=== PATIENT | female | born 1990 | race Caucasian/White ===

== ENCOUNTER 2021-10-13 13:19 | Emergency (ER) | payer BC, SELFPAY ==
--- NOTE | ~2021-10-13 | CT_ITS ---
EXAMINATION: CT facial bones wo con DATE: 10/13/2021 15:18 INDICATION: Face injury. TECHNIQUE: Computed tomography (CT) of the facial bones and maxillofacial region was performed withou t intravenous contrast. Automated exposure control and iterative reconstruction technique were employ ed. The dose-length product was 605.33 mGy-cm. COMPARISON: None. FINDINGS: There is rightward deviation of the nasal septum. No fracture. There is mild mucosal thicke jerry in the ethmoid sinuses. IMPRESSION: 1. No fracture. Reviewed, dictated and finalized at location A. IMPRESSION: 1. No fracture.
--- NOTE | ~2021-10-13 | XR_ITS ---
EXAMINATION: XR chest 2V DATE: 10/13/2021 15:22 INDICATION: Dizziness and shortness of breath TECHNIQUE: PA and lateral views of the chest are obtained. COMPARISON: None available FINDINGS: The lungs are free of acute opacities. There is no pleural effusion or pneumothorax. The ca rdiomediastinal silhouette is normal. The visualized bones and soft tissues are unremarkable. IMPRESSION: 1. No acute cardiopulmonary abnormality. Reviewed, dictated and finalized at location A.
--- NOTE | ~2021-10-13 | CT_ITS ---
EXAMINATION: CT brain wo con DATE: 10/13/2021 15:18 INDICATION: Head injury. TECHNIQUE: Computed tomography (CT) of the head was performed without intravenous contrast. The mA wa s adjusted according to patient size. Iterative reconstruction technique was employed. The dose-lengt h product was 605.33 mGy-cm. COMPARISON: None FINDINGS: There is no intracranial hemorrhage, acute infarction, or abnormal intracranial mass lesion . There is a 2.2 x 1.1 cm arachnoid cyst overlying right frontal lobe. The ventricles are normal in s ize. There is mild mucosal thickening in the paranasal sinuses. There is a small right mastoid effusi on. IMPRESSION: 1. No acute intracranial pathology. Reviewed, dictated and finalized at location A.
[2021-10-13 13:30] VITALS: BP 111/65; PULSE 76; RESP 16; TEMP 36.6; O2SAT 99
--- NOTE | 2021-10-13 14:39 | ECG_ITS ---
Measurements Intervals [place] Rate: 64 P: 7 NE: 117 QRS: 58 QRSD: 81 T: 41 QT: 354 QTc: 367 Interpretive Statements SINUS RHYTHM WITH SINUS ARRHYTHMIA WITH SHORT NE INTERVAL BASELINE ARTIFACT BORDERLINE ECG NO PREVIOUS ECG AVAILABLE FOR COMPARISON Electronically Signed On 10-13-2021 14:59:33 CDT by Pee Mayfield M.D.
[2021-10-13 15:09] LABS: Basophils Absolute Auto 0.05 K/mm3 (0.00-0.10); Basophils Percent Auto 0.7 % (0.0-1.0); Eosinophils Absolute Auto 0.09 K/mm3 (0.02-0.50); Eosinophils Percent Auto 1.3 % (1.0-6.0); Hematocrit 35.8 % (35.0-49.0); Hemoglobin 11.8 g/dL (12.0-15.0); Immature Granulocyte Absolute 0.01 K/mm3 (0.00-0.00); Immature Granulocyte Percent A 0.1 % (0.0-0.0); Lymphocytes Absolute Auto 2.63 K/mm3 (1.10-4.50); Lymphocytes Percent Auto 39.1 % (18.0-42.0); Mean Corpuscular Hemoglobin 29.9 pg (27.0-31.0); Mean Corpuscular Volume 90.9 fL (78.0-102.0); Mean Platelet Volume 10.1 fl (9.2-11.8); Monocytes Absolute Auto 0.45 K/mm3 (0.10-0.90); Monocytes Percent Auto 6.7 % (2.0-11.0); Neutrophils Absolute Auto 3.5 K/mm3 (1.7-7.2); Neutrophils Percent Auto 52.1 % (50.0-70.0); Platelet Count Result 253 K/mm3 (150-420); Red Blood Count 3.94 M/mm3 (4.20-5.40); Red Cell Distribution Width 12.1 % (11.6-14.4); White Blood Count 6.7 K/mm3 (4.8-10.8)
[2021-10-13] MEDS: ACETAMINOPHEN 325 MG TABLET 650 MG PO (15:15)
[2021-10-13 15:17] LABS: Add Urine Microscopic? YES; Bilirubin Urine Negative (Negative); Blood Urine Negative (Negative); Color Urine Light Yellow (Yellow); Glucose Urine UA Negative (Negative); Ketones Urine Negative (Negative); Leukocyte Esterase Ur Trace (Negative); Nitrate Urine Negative (Negative); Protein Urine Negative (Negative); Urobilinogen Urine 0.2 mg/dL (0.2-1.0)
[2021-10-13 15:23] LABS: Amorphous Sediment Urine Moderate; Appearance Urine Cloudy (Clear); RBC Urine None seen /hpf (0-2); Squamous Epithelial Cell Urine Few /hpf (Few)
[2021-10-13 15:24] LABS: Bacteria Urine Trace /hpf
[2021-10-13 15:27] LABS: SPREG INTERNAL CONTROL Positive; Serum Qual hCG Negative
[2021-10-13 15:31] LABS: Alanine Aminotransferase 18 U/L (14-59); Albumin Level 3.6 g/dL (3.4-5.0); Alkaline Phosphatase 77 U/L (46-116); Amphetamine Screen Urine Negative (Negative); Anion Gap 3 mmol/L (8-16); Aspartate Amino Transferase 12 U/L (15-37); Barbiturate Screen Urine Negative (Negative); Benzodiazepines Screen Urine Negative (Negative); Bilirubin,Total 0.8 mg/dL (0.00-1.00); Blood Urea Nitrogen 11 mg/dL (7-18); Calcium 8.7 mg/dL (8.5-10.1); Cannabinoid Screen Urine Negative (Negative); Carbon Dioxide 30 mmol/L (21-32); Chloride 106 mmol/L (98-108); Cocaine Screen Urine Negative (Negative); Estimated CRCL calculation 87 ml/min; Estimated Glomerular Filt Rate > 60; Ethanol 3 mg/dL (0-6); Glucose 97 mg/dL (70-99); Methadone Screen Urine Negative (Negative); Opiate Screen Urine Negative (Negative); Osmolality Calculated 287 mOsm/kg (285-295); Phencyclidine Screen Urine Negative (Negative); Potassium 3.7 mmol/L (3.5-5.1); Sodium 139 mmol/L (136-145); Total Protein 6.8 g/dL (6.4-8.2); Troponin I 4.3 ng/L (0.00-60.4)
--- NOTE | 2021-10-13 15:35 | PC.NURSE ---
pt declines iv and ivf at this time. she is currently drinking soda without difficulty. mother at bedside.
--- NOTE | 2021-10-13 16:21 | ED.EPISTAXIS ---
HPI - Epistaxis General Chief complaint: Epistaxis Stated complaint: NOSE PAIN/BLEEDING Time Seen by Provider: 10/13/21 13:23 Source: patient and RN notes reviewed Mode of arrival: ambulatory Limitations: no limitations History of Present Illness HPI Narrative: hit on head with resultant nosebleed, now resolved. complaint: epistaxis Location: left nostril Onset (ago): hour(s) Duration: now resolved Treatment prior to arrival: other (no acute epistaxis in the ED.) Related Data Home Medications Medication Instructions Recorded Confirmed fluoxetine 40 mg capsule 1 cap PO DAILY 10/13/21 10/13/21 Allergies Allergy/AdvReac Type Severity Reaction Status Date / Time No Known Allergies Allergy Verified 10/13/21 13:48 Review of Systems Review of Systems: All systems reviewed & are unremarkable except as noted in HPI and below Constitutional: Constitutional: Reports no additional constitutional complaints Eyes: Eyes: Reports no additional eye complaints ENT: Reports system reviewed and no additional complaints, except as documented Comments: head injury with epistaxis, now resolved. Cardiovascular: Cardiovascular: Reports no additional cardiovascular complaints Respiratory: Respiratory: Reports no additional respiratory complaints Gastrointestinal: Gastrointestinal: Reports no additional gastrointestinal complaints Genitourinary: Genitourinary: Reports no additional female genitourinary complaints Musculoskeletal: Musculoskeletal: Reports no additional musculoskeletal complaints Integumentary/Breasts: Skin/Breast: Reports system reviewed and no additional complaints, except as docu Neurologic: Reports system reviewed and no additional complaints, except as documented Psychiatric: Psychiatric: Reports no additional psychiatric complaints Endocrine: Endocrine: Reports no additional endocrine complaints Hematologic/Lymphatic: Hematologic/Lymphatic: Reports no additional hematologic/lymphatic complaints Allergic/Immunologic: Allergic/Immunologic: Reports no additional allergic/immunologic complaints PMFSH Past Medical History Medical History Epistaxis due to trauma Exam Const: General: healthy appearing and no acute distress Nutritional Appearance: well nourished Orientation/consciousness: patient oriented x3 Limitations: no limitations HENMT: Head: normal to inspection Ears: external ears normal, TM's normal bilaterally and EAC's normal General nose exam: Normal external nose present and Normal nares present (no acute epistaxis) Face and sinus: normal facial exam and sinuses nontender Mouth: Yes Normal oral and palatal mucosa present and Yes moist mucous membranes Teeth and gingiva: dentition normal Throat: posterior oropharynx normal Eyes: Conjunctivae: conjunctivae normal Pupils: Equal, round and reactive pupils present EOM: EOMs intact bilaterally Neck: Neck: normal visual inspection, no lymphadenopathy and no meningeal signs Chest: Chest palpation & inspection: normal inspection of the chest Resp: Effort & Inspection: normal respiratory effort Auscultation: clear to auscultation bilaterally Cardio: Rate: regular rate Rhythm: regular rhythm GI: GI Palp: Yes Soft to palpation and No Tenderness to palpation present (GI) Auscultation: normal bowel sounds : General: Yes bladder normal to palpation and Yes no CVA tenderness Bimanual exam- vagina & uterus: bladder normal to palpation Back/Spine/Pelvis: Back: no CVA tenderness Skin: General skin exam: normal color Rashes: no rashes Wounds: no wounds Neuro: General: patient oriented x3, moves all extremities, no meningeal signs, no focal motor deficits and CN's II-XI intact bilaterally Cranial nerves: Yes Equal, round and reactive pupils present and Yes Nystagmus not present Speech: normal speech Gait exam (Neuro): Normal gait present Extrem: General: normal to inspectio
--- NOTE | 2021-10-13 16:22 | PC.NURSE ---
1415 PT IS SITTING ON STRETCHER IN EXAM ROOM TALKING WITH MOTHER. NAD NOTED AT THIS TIME. SODA AND ICE PROVIDED REQUESTED. PT IS AWAITING ERP AT THIS TIME. WILL CONTINUE TO MONITOR.
--- NOTE | 2021-10-13 16:23 | PC.NURSE ---
PT IS AWAITING ERP DECISION AT THIS TIME. PT IS TALKING WITH MOTHER, NAD NOTED. WILL CONTINUE TO MONITOR.
--- NOTE | 2021-10-13 16:25 | PC.NURSE ---
MEDICATIONS GIVEN WITHOUT SCANNING DUE TO COMPUTER BEING DOWN.
[2021-10-13 17:00] VITALS: BP 110/60; PULSE 62; RESP 16; O2SAT 98
== END 2021-10-13 17:00 | disposition home or self-care (01) ==
PROVIDERS: Emergency Provider Emergency Medicine; PCP Family Medicine
DX: S00.33XA Contusion of nose, initial encounter (principal); S09.90XA Unspecified injury of head, initial encounter; N39.0 Urinary tract infection, site not specified; W22.8XXA Striking against or struck by other objects, initial encounter
CPT/HCPCS: 36415; 70450; 70486; 71046; 80053; 80307; 81001; 84484; 84703; 85025; 93005; 99284; A9270

== ENCOUNTER 2024-01-02 18:45 | Emergency (ER) | payer BC, SELFPAY ==
[2024-01-02 18:51] VITALS: BP 134/91; PULSE 84; RESP 18; TEMP 36.3; O2SAT 97
[2024-01-02 18:52] VITALS: BP 134/91; PULSE 84; RESP 18; TEMP 36.3; O2SAT 97
--- NOTE | 2024-01-02 19:03 | ED.GENADULT ---
HPI - General Adult General Chief complaint: Nausea/Vomiting/Diarrhea Stated complaint: uri Time Seen by Provider: 01/02/24 18:47 History of Present Illness HPI narrative: Rashida presented to the ED not feeling well. A few days ago she had and upset stomach and a few episodes of vomiting which progressed to diarrhea the next day. Today she started to have sinus pain and ear fullness and continues to have non-bloody diarrhea and vomiting. No fevers or dyspnea reported. Related Data Home Medications Medication Instructions Recorded Confirmed escitalopram oxalate 20 mg tablet 20 mg PO DAILY 01/02/24 01/02/24 Allergies Allergy/AdvReac Type Severity Reaction Status Date / Time No Known Allergies Allergy Verified 01/02/24 18:52 Review of Systems Review of Systems: All systems reviewed & are unremarkable except as noted in HPI and below [facility] Past Medical History Medical History Epistaxis due to trauma Exam Const: General: cooperative, healthy appearing, comfortable, no acute distress, well developed, alert, awake and Physically active Orientation/consciousness: oriented to person, oriented to place and oriented to time HENMT: Head: normal to inspection, normocephalic and atraumatic Ears: hearing grossly normal bilaterally and external ears normal Face/Nose/Sinus: Normal external nose present Other: right cerumen impaction Eyes: General: appearance normal, both eyes and all related structures Periorbital: periorbital findings normal Sclera: sclerae normal Pupils: Equal, round and reactive pupils present Neck: Neck: normal visual inspection Chest: Chest palpation & inspection: normal inspection of the chest Resp: Effort & Inspection: normal respiratory effort, able to speak in complete sentences and no respiratory distress Auscultation: clear to auscultation bilaterally Cardio: Jugular venous distension: no JVD Rate: regular rate Rhythm: regular rhythm GI: Inspection: normal to inspection GI Palp: Yes Soft to palpation Auscultation: normal bowel sounds Skin: General skin exam: normal color and no rashes or lesions noted Neuro: General: oriented to person, oriented to place and oriented to time Cranial nerves: Yes Equal, round and reactive pupils present Extrem: General: normal to inspection Course Course Emergency Course: Ordered labs, viral testing, IV fluids, zofran and toradol. Labs largely unremarkable. Viral testing negative. Vital Signs Vital signs: Vital Signs Oxygen Delivery Room Air 01/02/24 18:45 Temperature 97.4 F L 01/02/24 18:52 Pulse Rate 84 01/02/24 18:52 Respiratory Rate 18 01/02/24 18:52 Blood Pressure 134/91 H 01/02/24 18:52 Pulse Oximetry 97 01/02/24 18:52 Oxygen Delivery Room Air 01/02/24 18:52 Medical Decision Making Vital Signs Vital Signs: Vital Signs Oxygen Delivery Room Air 01/02/24 18:45 Temperature 97.4 F L 01/02/24 18:52 Pulse Rate 84 01/02/24 18:52 Respiratory Rate 18 01/02/24 18:52 Blood Pressure 134/91 H 01/02/24 18:52 Pulse Oximetry 97 01/02/24 18:52 Oxygen Delivery Room Air 01/02/24 18:52 Lab Data 01/02/24 19:13 01/02/24 19:13 Labs: Lab Results 01/02/24 Range/Units 19:13 WBC 9.7 (4.8-10.8) K/mm3 RBC 4.45 (4.20-5.40) M/mm3 Hgb 12.9 (12.0-15.0) g/dL Hct 39.1 (35.0-49.0) % MCV 87.9 (78.0-102.0) fL MCH 29.0 (27.0-31.0) pg MCHC 33.0 (32-36) g/dL RDW 12.2 (11.6-14.4) % Plt Count 277 (150-420) K/mm3 MPV 10.3 (9.2-11.8) fl Immature Gran % (Auto) 0.3 H (0.0-0.0) % Neut % (Auto) 61.0 (50.0-70.0) % Lymph % (Auto) 30.5 (18.0-42.0) % [place] % (Auto) 7.0 (2.0-11.0) % Eos % (Auto) 0.6 L (1.0-6.0) % Baso % (Auto) 0.6 (0.0-1.0) % Lymph # (Auto) 2.97 (1.10-4.50) K/mm3 [place] # (Auto) 0.68 (0.10-0.90) K/mm3 Eos # (Auto) 0.06 (0.02-0.50) K/mm3
--- NOTE | 2024-01-02 19:10 | PC.NURSE ---
covid sample sent to lab
[2024-01-02] MEDS: ONDANSETRON INJ 4 MG/2 ML VIAL IV PUSH (19:12)
[2024-01-02] MEDS: KETOROLAC 15 MG/ML VIAL (*BKC) IV PUSH (19:15)
[2024-01-02 19:16] LABS: Basophils Absolute Auto 0.06 K/mm3 (0.00-0.10); Basophils Percent Auto 0.6 % (0.0-1.0); Eosinophils Absolute Auto 0.06 K/mm3 (0.02-0.50); Eosinophils Percent Auto 0.6 % (1.0-6.0); Hematocrit 39.1 % (35.0-49.0); Hemoglobin 12.9 g/dL (12.0-15.0); Immature Granulocyte Absolute 0.03 K/mm3 (0.00-0.00); Immature Granulocyte Percent A 0.3 % (0.0-0.0); Lymphocytes Absolute Auto 2.97 K/mm3 (1.10-4.50); Lymphocytes Percent Auto 30.5 % (18.0-42.0); Mean Corpuscular Volume 87.9 fL (78.0-102.0); Mean Platelet Volume 10.3 fl (9.2-11.8); Monocytes Absolute Auto 0.68 K/mm3 (0.10-0.90); Neutrophils Absolute Auto 5.94 K/mm3 (1.70-7.20); Platelet Count Result 277 K/mm3 (150-420); Red Blood Count 4.45 M/mm3 (4.20-5.40); Red Cell Distribution Width 12.2 % (11.6-14.4); White Blood Count 9.7 K/mm3 (4.8-10.8)
[2024-01-02] MEDS: SODIUM CHLORIDE 0.9% IV 1,000 ML 999 ML IV CONT (19:17)
[2024-01-02 19:32] LABS: Alanine Aminotransferase 14 U/L (14-59); Alkaline Phosphatase 96 U/L (46-116); Anion Gap 11 mmol/L (4-12); Aspartate Amino Transferase 14 U/L (15-37); Bilirubin,Total 0.6 mg/dL (0.00-1.00); Blood Urea Nitrogen 9 mg/dL (7-18); Calcium 8.8 mg/dL (8.5-10.1); Carbon Dioxide 26 mmol/L (21-32); Chloride 101 mmol/L (98-108); Estimated CRCL calculation 83 ml/min; Estimated Glomerular Filt Rate > 60; Glucose 103 mg/dL (70-99); Lipase 47 U/L (16-77); Osmolality Calculated 284 mOsm/kg (285-295); Potassium 3.5 mmol/L (3.5-5.1); Sodium 138 mmol/L (136-145); Total Protein 7.6 g/dL (6.4-8.2)
[2024-01-02 19:52] LABS: SARS-CoV-2 RNA PCR Negative (Negative)
[2024-01-02 19:53] LABS: Influenza A QL RT-PCR Negative (Negative); Influenza B QL RT-PCR Negative (Negative); RSV RNA, RT-PCR Negative (Negative)
[2024-01-02 20:11] VITALS: BP 127/79; PULSE 66; RESP 18; TEMP 36.1; O2SAT 98
== END 2024-01-02 20:14 | disposition home or self-care (01) ==
PROVIDERS: Emergency Provider Family Medicine; PCP Family Medicine
DX: K52.9 Noninfective gastroenteritis and colitis, unspecified (principal); Z20.822 Contact with and (suspected) exposure to COVID-19
CPT/HCPCS: 36415; 80053; 83690; 85025; 87637; 96361; 96374; 96375; 99284; J1885; J2405; J7030

== ENCOUNTER 2024-03-07 18:50 | Emergency (ER) | payer BC, SELFPAY ==
--- NOTE | ~2024-03-07 | XR_ITS ---
CHEST RADIOGRAPH CLINICAL HISTORY: chronic cough . COMPARISON: 10/13/2021 TECHNIQUE: Single portable view of the chest. FINDINGS The cardiomediastinal silhouette is unremarkable. The lungs are clear. Visualized osseous structures and soft tissues are unremarkable. IMPRESSION: No focal infiltrate or effusion. Reviewed, dictated and finalized at location A. [employer] TECHNICIAN
[2024-03-07 18:52] VITALS: BP 158/88; PULSE 89; RESP 20; TEMP 36.9; O2SAT 100
--- NOTE | 2024-03-07 18:54 | ED_ITS ---
HPI - URI/Sore Throat General Chief Complaint: Upper Respiratory Infection Stated Complaint: congestion Time Seen by Provider: 03/07/24 18:54 Source: patient Mode of arrival: ambulatory Limitations: no limitations History of Present Illness HPI Narrative: 33-year-old female, smoker presents to the ED with a 1 month history -- subjective fevers -- cough which is productive of mucoid and occasional mucopurulent sputum. No chest pain or shortness of breath. No nasal congestion or sore throat. No ear pain. The had some diarrhea and the beginning of her illness but has not had any nausea / vomiting / diarrhea recently. the patient took a course of Augmentin without any improvement of her symptoms. MD elicited complaint: fever and cough Onset (ago): month(s) ( One month) Consistency: constant Severity: severe Description of mucous: clear Able to tolerate fluids by mouth: Yes Exacerbating factors: nothing Relieving factors: nothing Associated symptoms: fever and cough Treatments prior to arrival: none Related Data Home Medications Medication Instructions Recorded Confirmed escitalopram oxalate 20 mg tablet 20 mg PO DAILY 01/02/24 03/07/24 (Lexapro) Allergies Allergy/AdvReac Type Severity Reaction Status Date / Time No Known Allergies Allergy Verified 03/07/24 19:50 Review of Systems Review of Systems: All systems reviewed & are unremarkable except as noted in HPI and below Constitutional: Constitutional: Reports as per HPI, Reports no additional constitutional complaints and Reports fever(s) Eyes: Eyes: Reports as per HPI and Reports no additional eye complaints ENT: Reports system reviewed and no additional complaints, except as documented and Reports as per HPI Cardiovascular: Cardiovascular: Reports as per HPI and Reports no additional cardiovascular complaints Respiratory: Respiratory: Reports as per HPI, Reports no additional respiratory complaints and Reports cough Gastrointestinal: Gastrointestinal: Reports as per HPI and Reports no additional gastrointestinal complaints Genitourinary: Genitourinary: Reports no additional female genitourinary complaints and Reports as per HPI Musculoskeletal: Musculoskeletal: Reports no additional musculoskeletal complaints and Reports as per HPI Integumentary/Breasts: Skin/Breast: Reports system reviewed and no additional complaints, except as docu and Reports as per HPI Neurologic: Reports system reviewed and no additional complaints, except as documented and Reports as per HPI Psychiatric: Psychiatric: Reports no additional psychiatric complaints and Reports as per HPI Endocrine: Endocrine: Reports no additional endocrine complaints and Reports as per HPI Hematologic/Lymphatic: Hematologic/Lymphatic: Reports no additional hematologic/lymphatic complaints and Reports as per HPI Allergic/Immunologic: Allergic/Immunologic: Reports no additional allergic/immunologic complaints and Reports as per HPI [facility] Past Medical History Medical History Epistaxis due to trauma Exam Narrative: a afebrile. Oxygen saturation of 100% on room air with a respiratory rate of 20 and a heart rate of 89. Const: Nutritional Appearance: well nourished Orientation/consciousness: patient oriented x3 Limitations: no limitations HENMT: Head: normal to inspection Ears: external ears normal Face/Nose/Sinus: Normal external nose present Face and sinus: normal facial exam Mouth: Yes Normal oral and palatal mucosa present Throat: posterior oropharynx normal Eyes: Conjunctivae: conjunctivae normal Pupils: Equal, round and reactive pupils present EOM: EOMs intact bilaterally Direct Ophthalmoscopy: no photophobia Neck: Neck: normal visual inspection, no lymphadenopathy and no meningeal signs Chest: Chest palpation & inspection: normal inspection of the chest Resp: Auscultation: rhonchi Cardio: Rate: regular rate Rhythm: regular rhythm GI: GI Palp: Yes Soft to palpation Other: No tenderness/ rigidity /rebound. : General: Yes no CVA tenderness Back/Spine/Pelvis: Back: no CVA tenderness Skin: General skin exam: normal color Rashes: no rashes Wounds: no wound s Neuro: General: patient oriented x3, moves all extremities, no meningeal signs, no focal motor deficits and CN's II-XI intact bilaterally Cranial nerves: Yes Nystagmus not present Speech: normal speech Gait exam (Neuro): Normal gait present Extrem: General: normal to inspection and no clubbing, cyanosis or edema Psych: Mental Status: mental status grossly normal Affect: normal affect Attitude: cooperative Course Course Emergency Course: Recurrent coughing with rhonchi is suggestive of allergic bronchitis. patient has been coughing continuously during her ER stay. Will treat with Zithromax, steroids and bronchodilators will give a DuoNeb treatment and give her a shot of Solu-Medrol Complaining of neck pain-- over the left sternocleidomastoid. Will give a dose of Toradol IM. Vital Signs Vital signs: Vital Signs Temperature 36.9 C 03/07/24 18:52 Pulse Rate 89 03/07/24 18:52 Respiratory Rate 20 03/07/24 18:52 Blood Pressure 158/88 H 03/07/24 18:52 Pulse Oximetry 100 03/07/24 18:52 Oxygen Delivery Room Air 03/07/24 18:52 Temperature 36.9 C 03/07/24 18:52 Pulse Rate 84 03/07/24 20:34 Respiratory Rate 18 03/07/24 20:34 Blood Pressure 113/80 03/07/24 20:34 Pulse Oximetry 100 03/07/24 20:34 Oxygen Delivery Room Air 03/07/24 20:34 MDM - URI/Sore Throat MDM Narrative Medical decision making narrative: Allergic bronchitis/ bronchospasm neck pain Differential Diagnosis Differential diagnosis: Likely viral infection, bronchitis and influenza Medical Records Attestation: I reviewed the patient's medical records. Lab Data Attestation: I reviewed the patient's lab results. 03/07/24 19:16 03/07/24 19:16 Labs: Lab Results 03/07/24 03/07/24 Range/Units 19:16 19:37 WBC 11.9 H (4.8-10.8) K/mm3 RBC 4.67 (4.20-5.40) M/mm3 Hgb 13.5 (12.0-15.0) g/dL Hct 40.5 (35.0-49.0) % MCV 86.7 (78.0-102.0) fL MCH 28.9 (27.0-31.0) pg MCHC 33.3 (32-36) g/dL RDW 12.6 (11.6-14.4) % Plt Count 369 (150-420) K/mm3 MPV 10.0 (9.2-11.8) fl Immature Gran % (Auto) 0.4 H (0.0-0.0) % Neut % (Auto) 62.5 (50.0-70.0) % Lymph % (Auto) 27.6 (18.0-42.0) % [place] % (Auto) 7.3 (2.0-11.0) % Eos % (Auto) 1.5 (1.0-6.0) % Baso % (Auto) 0.7 (0.0-1.0) % Lymph # (Auto) 3.28 (1.10-4.50) K/mm3 [place] # (Auto) 0.87 (0.10-0.90) K/mm3 Eos # (Auto) 0.18 (0.02-0.50) K/mm3 Baso # (Auto) 0.08 (0.00-0.10) K/mm3 Abs Immat Gran (auto) 0.05 H (0.00-0.00) K/mm3 Absolute Neuts (auto) 7.41 H (1.70-7.20) K/mm3 Absolute Nucleated RBC 0.00 (0.00-0.00) K/mm3 Nucleated RBC % 0.0 (0-0.0) % Sodium 139 (136-145) mmol/L Potassium 3.4 L (3.5-5.1) mmol/L Chloride 102 (98-108) mmol/L Carbon Dioxide 29 (21-32) mmol/L Anion Gap 8 (4-12) mmol/L BUN 8 (7-18) mg/dL Creatinine 0.71 (0.55-1.02) mg/dL Estim Creat Clear Calc 83 ml/min Estimated GFR > 60 (59 - ) Glucose 99 (70-99) mg/dL Calculated Osmolality 286 (285-295) mOsm/kg Lactic Acid 1.0 (0.4-2.0) mmol/L Calcium 9.1 (8.5-10.1) mg/dL Total Bilirubin 0.5 (0.00-1.00) mg/dL AST 11 L (15-37) U/L ALT 15 (14-59) U/L Alkaline Phosphatase 98 (46-116) U/L Troponin I < 4.0 (0.00-60.4) ng/L Total Protein 7.4 (6.4-8.2) g/dL Albumin 3.8 (3.4-5.0) g/dL Lipase 54 (16-77) U/L Urine Color Light yellow (Yellow) Urine Appearance Clear (Clear) Urine pH 6.0 (5.0-8.0) Ur Specific [place] 1.020 (1.010-1.020) Urine Protein Negative (Negative) Urine Glucose (UA) Negative (Negative) Urine Ketones Negative (Negative) Ur Blood (Man) Negative (Negative) Urine Nitrate Negative (Negative) Urine Bilirubin Negative (Negative) Urine Urobilinogen 0.2 (0.2-1.0) mg/dL Leukocyte Esterase Rfl 1+ H (Negative) TOMI/UL Urine RBC 0-2 (0-2) /hpf Urine WBC 4-6 H (0-3) /hpf Ur Squamous Epith Cells Few (Few) /hpf Urine Bacteria 1+ H (None) /hpf Urine Mucus Few H /lpf Urine Test Negative Influenza A (RT-PCR) Negative (Negative) Influenza B (RT-PCR) Negative (Negative) RSV (RT-PCR) Negative (Negative) SARS-CoV-2 RNA (RT-PCR) Negative (Negative) Discharge Plan Discharge Clinical Impression: Bronchitis with bronchospasm, Neck pain Patient Disposition: Home, Self-Care Condition: Stable Instructions: Antibiotic Form, Acute Bronchitis (ED), Bronchospasm (ED) Patient Language: Arabic Prescriptions: New albuterol sulfate 90 mcg/actuation HFA aerosol inhaler 2 puff inhalation QID PRN (Reason: shortness of breath or wheezing) Qty: 8.5 0RF azithromycin [Zithromax] 250 mg tablet 250 mg PO DAILY 4 Days Qty: 4 0RF Rx Instructions: start on day 2 of therapy prednisone 20 mg tablet 20 mg PO BID Qty: 10 0RF No Action escitalopram oxalate [Lexapro] 20 mg tablet 20 mg PO DAILY Follow-up/Referrals: UNKNOWN,DOCTOR [Non-Staff] - Stand Alone Forms: Work/School Release IP Time of Disposition: 20:45
[2024-03-07 19:19] LABS: Basophils Absolute Auto 0.08 K/mm3 (0.00-0.10); Basophils Percent Auto 0.7 % (0.0-1.0); Eosinophils Absolute Auto 0.18 K/mm3 (0.02-0.50); Eosinophils Percent Auto 1.5 % (1.0-6.0); Hematocrit 40.5 % (35.0-49.0); Hemoglobin 13.5 g/dL (12.0-15.0); Immature Granulocyte Absolute 0.05 K/mm3 (0.00-0.00); Immature Granulocyte Percent A 0.4 % (0.0-0.0); Lymphocytes Absolute Auto 3.28 K/mm3 (1.10-4.50); Lymphocytes Percent Auto 27.6 % (18.0-42.0); Mean Corpuscular HGB Conc 33.3 g/dL (32-36); Mean Corpuscular Hemoglobin 28.9 pg (27.0-31.0); Mean Corpuscular Volume 86.7 fL (78.0-102.0); Monocytes Absolute Auto 0.87 K/mm3 (0.10-0.90); Monocytes Percent Auto 7.3 % (2.0-11.0); Neutrophils Absolute Auto 7.41 K/mm3 (1.70-7.20); Neutrophils Percent Auto 62.5 % (50.0-70.0); Platelet Count Result 369 K/mm3 (150-420); Red Blood Count 4.67 M/mm3 (4.20-5.40); Red Cell Distribution Width 12.6 % (11.6-14.4); White Blood Count 11.9 K/mm3 (4.8-10.8)
--- NOTE | 2024-03-07 19:35 | PC.NURSE ---
pt taken to bathroom for urine specimen
[2024-03-07 19:37] LABS: Alanine Aminotransferase 15 U/L (14-59); Albumin Level 3.8 g/dL (3.4-5.0); Alkaline Phosphatase 98 U/L (46-116); Anion Gap 8 mmol/L (4-12); Aspartate Amino Transferase 11 U/L (15-37); Bilirubin,Total 0.5 mg/dL (0.00-1.00); Blood Urea Nitrogen 8 mg/dL (7-18); Calcium 9.1 mg/dL (8.5-10.1); Carbon Dioxide 29 mmol/L (21-32); Chloride 102 mmol/L (98-108); Estimated CRCL calculation 83 ml/min; Estimated Glomerular Filt Rate > 60; Glucose 99 mg/dL (70-99); Lipase 54 U/L (16-77); Osmolality Calculated 286 mOsm/kg (285-295); Potassium 3.4 mmol/L (3.5-5.1); Sodium 139 mmol/L (136-145); Total Protein 7.4 g/dL (6.4-8.2)
[2024-03-07 19:40] LABS: Troponin I < 4.0 ng/L (0.00-60.4)
[2024-03-07 19:48] LABS: Add Urine Microscopic? YES; Appearance Urine Clear (Clear); Bilirubin Urine Negative (Negative); Blood Urine Negative (Negative); Color Urine Light Yellow (Yellow); Glucose Urine UA Negative (Negative); Ketones Urine Negative (Negative); Leukocyte Esterase Ur 1+ LEU/UL (Negative); Nitrate Urine Negative (Negative); Protein Urine Negative (Negative); Urobilinogen Urine 0.2 mg/dL (0.2-1.0)
[2024-03-07 19:55] LABS: Bacteria Urine 1+ /hpf; Mucus Urine Few /lpf; RBC Urine 0-2 /hpf (0-2); Squamous Epithelial Cell Urine Few /hpf (Few)
[2024-03-07 19:55] LABS: SARS-CoV-2 RNA PCR Negative (Negative)
[2024-03-07 19:56] LABS: Influenza A QL RT-PCR Negative (Negative); Influenza B QL RT-PCR Negative (Negative); RSV RNA, RT-PCR Negative (Negative)
[2024-03-07 19:56] LABS: Pregnancy On Board Control Positive; Urine Pregnancy Test Negative
[2024-03-07] MEDS: IPRATROPIUM 0.5 MG/ALBUTEROL SULFATE 2.5 MG AMPUL.NEB 3 ML INHALATION (20:23)
[2024-03-07] MEDS: methylPREDNISolone SOD SUCC 125 MG VIAL IM (20:25)
[2024-03-07 20:34] VITALS: BP 113/80; PULSE 84; RESP 18; O2SAT 100
--- NOTE | 2024-03-07 20:35 | PC.NURSE ---
patient medicated per order, see JUN. vss. RN monitoring. patient requesting pain medication for her neck discomfort. ERP aware. call light within reach. patient given warm blanket.
[2024-03-07] MEDS: AZITHROMYCIN 250 MG TABLET 500 MG PO (20:54)
[2024-03-07] MEDS: KETOROLAC 30 MG/ML VIAL (*BKC) IM (20:54)
--- NOTE | 2024-03-10 12:22 | PC.NURSE ---
final urine culture report reviewed. no growth isolated. no change in plan of care
== END 2024-03-07 21:30 | disposition home or self-care (01) ==
PROVIDERS: Emergency Provider Internal Medicine Critical Care Medicine; PCP Family Medicine
DX: J40 Bronchitis, not specified as acute or chronic (principal); M54.2 Cervicalgia; Z20.822 Contact with and (suspected) exposure to COVID-19
CPT/HCPCS: 36415; 71045; 80053; 81001; 81025; 83605; 83690; 84484; 85025; 87086; 87637; 94640; 96372; 99284; A9270; J1885; J2919